=== PATIENT | male | born 1960 | race Caucasian/White ===

== ENCOUNTER 2024-09-19 06:24 | Day surgery (SDC) | payer MEDICARE, SELFPAY ==
[2024-09-19] VITALS (15 sets, daily range): BP systolic 108–148; BP diastolic 59–85; BMI 23.1
[2024-09-19] MEDS: COLACE 100 MG PO (17:50)
[2024-09-20 04:03] VITALS: BP 106/62
[2024-09-20 07:10] VITALS: BP 131/78
--- NOTE | 2024-09-20 07:55 | W.PN.UPDATE ---
Update Note
Progress Note Update
pt s/p TURP
marcos removed
TOV of void today and then discharge
[2024-09-20] MEDS: COLACE 100 MG PO ×3 (08:46→16:33)
[2024-09-20 09:10] LABS: Hematocrit 39.9 % (39.0-52.0); Hemoglobin 13.7 g/dL (13.0-18.0); Mean Corp Hgb Conc. 34.3 g/dL (33.0-37.0); Mean Corpuscular Volume 84.5 fL (80.0-94.0); Mean Platelet Volume 12.3 fL (7.4-10.4); Platelet Count 120 10^3/uL (130-400); Red Blood Cell Count 4.72 10^6/uL (4.70-6.10); Red Cell Dist. Width 12.6 % (11.5-14.5); White Blood Cell Count 9.1 10^3/uL (4.8-10.8)
[2024-09-20 09:48] LABS: Blood Urea Nitrogen 17 mg/dl (9-20); Calcium 8.9 mg/dl (8.4-10.2); Carbon Dioxide 29 mmol/L (22-30); Chloride 99 mmol/L (98-107); Estimated Creatinine Clearance 81 ml/min; Glucose 135 mg/dl (70-99); Potassium 3.8 mmol/L (3.5-5.1); Sodium 140 mmol/L (135-145); eGFR > 60.00
--- NOTE | 2024-09-20 10:16 | CM ---
Reviewed the chart notes and spoke with the patient at the bedside. Patient resides with spouse in a two story home. The patient reports no DME/VN/SNF in the past. The patient confirmed his pharmacy of choice is the [facility].
Patient's spouse to provide transportation home. CM continues to be available to patient/family and is monitoring medical plan for needs at discharge.
Plan: Discharge to home today with no anticipated needs. Amador has been removed.
[2024-09-20 11:02] VITALS: BP 147/86
--- NOTE | 2024-09-20 11:43 | W.PN.UPDATE ---
Update Note
Progress Note Update
pt unable to void
passing blood clots/pvr 500cc
22 kinyarwanda marcos replaced- hand irrigated- cbi restarted
will re-attempt TOV in am if urine clear
[2024-09-20] MEDS: FLOMAX 0.4 MG PO (12:13)
[2024-09-20 15:05] VITALS: BP 102/56
[2024-09-20 23:18] VITALS: BP 122/73
--- NOTE | 2024-09-21 00:23 | PTCARENOTE ---
CBI d/c per order at midnight. Urine in marcos bag very light yellow. patient resting comfortably in bed
[2024-09-21 07:35] VITALS: BP 109/76
--- NOTE | 2024-09-21 07:44 | W.PN.URO.CBU ---
Today's Communication / Plan
-
repeat TOV
Assessment / Plan
-
s/p TURP
recurrent retention pod 1
marcos removed today- repeat TOV
Diagnosis
-
Date of Service: September 21, 2024
-
Patient Diagnosis:
s/p TURP
Post Op Day:
2
Subjective
-
pt comfortable
labs yesterday stable
marcos was replaced and cbi restarted yesterday- off since midnight- urine clear
Objective
-
Vital Signs
Temp Pulse Resp BP Pulse Ox
98.0 F 58 16 122/73 99
09/20/24 23:18 09/20/24 23:18 09/20/24 23:18 09/20/24 23:18 09/20/24 23:18
Intake and Output
09/20/24 09/21/24 09/22/24
06:59 06:59 06:59
Intake Total 896 / 896 2500 / 2500
Output Total 7200 / 7200 8200 / 8200
Balance -6304 / -6304 -5700 / -5700
Intake:
Oral fluids 771 / 771 2500 / 2500
IV fluids (Total) 125 / 125
Ns 125 / 125
Output:
Urine, Marcos 750 / 750
True Urine Output from CBI 7200 / 7200 7450 / 7450
Laboratory Results
09/20/24 07:57
09/20/24 07:57
Review of Systems
-
Constitutional: Fatigue
Respiratory: No Symptoms
Cardiac: No Symptoms
Abdomen/GI: No Symptoms
Physical Exam
-
General - well developed, well nourished, no acute distress
Abdomen - soft, non-tender
Genitalia - normal- marcos in place
Skin - warm & dry with no rash
Neuro - AOx3, no motor deficits
Extremities - no clubbing, no cyanosis, no edema
[2024-09-21] MEDS: FLOMAX 0.4 MG PO (08:18)
[2024-09-21] MEDS: COLACE 100 MG PO ×2 (08:18→12:46)
[2024-09-21 14:52] VITALS: BP 126/67
== END 2024-09-21 15:21 | disposition home or self-care (01) ==
LOC: SDS 06:24
PROVIDERS: ATTENDING PHYSICIAN Specialist
DX: C61 Malignant neoplasm of prostate (principal); N40.1 Benign prostatic hyperplasia with lower urinary tract symptoms; N39.9 Disorder of urinary system, unspecified
CPT/HCPCS: 52601; 88305; 80048; 85027; 88344; 93005

== ENCOUNTER 2024-11-02 10:22 | Emergency (ER) | payer MEDICARE, SELFPAY ==
[2024-11-02 10:35] VITALS: BP 187/92
--- NOTE | 2024-11-02 12:19 | ED.GENMED ---
History of Present Illness
General
Chief Complaint: Male Genito-Urinary Symptoms
Source: patient
Exam Limitations: none
Time Seen by Provider: 11/02/24 10:38
History of Present Illness
History of Present Illness:
This is a 64-year-old male who presents with abdominal distention and inability to urinate. He had a TURP about 2 weeks ago and had been overall doing well but recently stopped his Flomax. The patient states that he did have a little bit of
urinary hesitancy last night but today symptoms got much worse. Denies hematuria. Denies fevers. Reports lower abdominal pain.
Past History
Past History
ED Past Medical History: Other (BPH)
ED Past Surgical History: Urological
Phy Exam
Physical Exam
Physical Exam:
CONSTITUTIONAL Patient alert and oriented to person, place and time. Well-appearing. Vital signs reviewed.
HEAD atraumatic, normocephalic.
EYES eyelids normal to inspection, Extraocular muscles intact, Conjunctiva normal, Sclera normal.
NECK normal range of motion, Trachea midline, no jugular venous distention.
RESPIRATORY CHEST No respiratory distress noted, Chest expansion equal
ABDOMEN moderate lower abdominal distention, moderate lower abdominal tenderness.
BACK normal inspection, no obvious deformities
UPPER EXTREMITY range of motion normal, Motor strength normal, no cyanosis, no edema.
LOWER EXTREMITY range of motion normal, Motor strength normal, no cyanosis, no edema.
NEURO Speech normal, No focal motor deficits, [place] coma scale 15, Memory normal, Cranial Nerves intact to screening exam.
SKIN skin warm, dry, and normal in color.
Course
Orders/Labs/Results
Orders:
Orders
11/02/24 10:46
Amador Placement- Treatment ONCE
Reason for insertion: Acute Retention
11/02/24 11:26
Sterile Water [Sterile Water For Injection] 10 ml .ROUTE .RUST-MED ONE
Vital Signs
Initial and Last Documented VS:
Initial Vital Signs
Pulse Resp BP Pulse Ox
57 20 187/92 99
11/02/24 10:35 11/02/24 10:35 11/02/24 10:35 11/02/24 10:35
Last Documented Vital Signs
Pulse Resp BP Pulse Ox
57 16 187/92 99
11/02/24 10:35 11/02/24 11:20 11/02/24 10:35 11/02/24 10:35
MDM/Problems Addressed
Differential Diagnosis Includes:
Hematuria, UTI, urinary retention
MDM/Problems Addressed:
Acute urinary retention.
*Pulse Oximetry
Patient hypoxic: no
*Critical Care Note
Total Time (30-74mins, 75-104mins- exclusive of procedures): Not Applicable
Data Reviewed
Review of Other/Old Records Reveals: Operative Reports (August 2024) and Progress Notes (History and physical reviewed from August 2024)
Source: patient
Further Testing Considered But Not Given:
Consider labs but previous labs reviewed revealing normal renal function
Patient Management
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 Lockett who agrees with antibiotic coverage)
Escalation/DeEscalation of care consider admission/obs:
Almost 1500 cc of urine into Amador catheter. Patient feels much better. Cover with antibiotics for prophylaxis and have patient follow-up with urology. Restart Flomax as he tolerated it well and seem to be doing well on Flomax
ED Attending Note
-
Portions of this chart may have been created with voice recognition software.� Occasional wrong word or��sound alike� substitutions may have occurred due to the inherent limitations of voice recognition software.
Discharge Plan
Departure
Patient Disposition: Home (Routine Discharge)
Date of Disposition: 11/02/24
Time of Disposition: 12:19
Patient with high blood pressure during this ER visit?: Yes
Discharge Problem:
Acute urinary retention
Instructions: How to Care for Your Amador Catheter, Male, Urinary Retention (DC), BLOOD PRESSURE
Prescriptions:
New
tamsulosin [Flomax] 0.4 mg capsule
0.4 mg PO DAILY Qty: 20 0RF
sulfamethoxazole-trimethoprim [Bactrim DS] 800-160 mg tablet
1 tab PO BID Qty: 14 0RF
No Action
multivitamin Tablet
1 tab PO DAILY
zinc acetate 50 mg (zinc) Capsule
50 mg PO DAILY
ascorbic acid (vitamin C) [Vitamin C] 500 mg Tablet
500 mg PO DAILY
cholecalciferol (vitamin D3) [Vitamin D3] 50 mcg (2,000 unit) Capsule
50 mcg PO DAILY
Uribel Tabs 81.6-0.12-10.8 mg tablet
1 tab PO QID Qty: 20 3RF
Referrals:
Todd Julien MD [Family Provider] -
Activity Restrictions/Additional Instructions:
Please see Dr. Tierney in follow-up in the next 3 to 5 days. Return immediately for fevers, vomiting, bloody urine, abdominal pain, worsening symptoms or any other concerns.
Interventions
Interventions:
*Risk Screen - Suicide Last Done: 11/02/24 10:35
*General Assessment Last Done: 11/02/24 11:20
*Neglect/Abuse Screening Last Done: 11/02/24 10:35
*ED COVID-19 Vaccine History Last Done: 11/02/24 11:20
ED-Male Genitourinary Assessment Last Done: 11/02/24 11:12
Discharge Date and Time
Print Language: PALAUAN
== END 2024-11-02 12:50 | disposition home or self-care (01) ==
LOC: EMR 10:22
PROVIDERS: EMERGENCY PHYSICIAN Emergency Medicine; FAMILY PHYSICIAN Internal Medicine
DX: R33.9 Retention of urine, unspecified (principal)
CPT/HCPCS: 99282; 51702

== ENCOUNTER 2024-12-06 17:00 | Emergency (ER) | payer MEDICARE, SELFPAY ==
[2024-12-06 17:09] VITALS: BP 153/83
[2024-12-06 17:43] LABS: % Basophils 0.4 % (0-2); % Eosinophils 0.7 % (0-6); % Immature Granulocytes 0.4 % (0-0.5); % Lymphocytes 21.2 % (20.5-51.1); % Monocytes 7.7 % (1.7-9.3); % Neutrophils 69.6 % (42.2-75.2); Absolute Lymphocytes 1.1 10^3/uL (1.2-3.4); Absolute Monocytes 0.4 10^3/uL (0.1-0.6); Absolute Neutrophils 3.7 10^3/uL (1.4-6.5); Hematocrit 40.3 % (39.0-52.0); Hemoglobin 13.7 g/dL (13.0-18.0); Mean Corpuscular Volume 85.2 fL (80.0-94.0); Mean Platelet Volume 12.3 fL (7.4-10.4); Nucleated Red Blood Cells % 0 % (-); Platelet Count 115 10^3/uL (130-400); Red Blood Cell Count 4.73 10^6/uL (4.70-6.10); Red Cell Dist. Width 13.2 % (11.5-14.5); White Blood Cell Count 5.3 10^3/uL (4.8-10.8)
[2024-12-06 17:53] LABS: ALT (SGPT) 37 U/L (0-50); AST (SGOT) 32 U/L (17-59); Albumin 4.6 g/dl (3.5-5.0); Alkaline Phosphatase 51 U/L (38-126); Blood Urea Nitrogen 18 mg/dl (9-20); Calcium 9.3 mg/dl (8.4-10.2); Carbon Dioxide 30 mmol/L (22-30); Chloride 100 mmol/L (98-107); Glucose 88 mg/dl (70-99); Potassium 4.2 mmol/L (3.5-5.1); Sodium 137 mmol/L (135-145); Total Bilirubin 0.8 mg/dl (0.2-1.3); Total Protein 6.8 g/dl (6.3-8.2); eGFR > 60.00
[2024-12-06 18:06] LABS: Troponin I < 0.012 ng/ml
[2024-12-06 20:25] VITALS: BP 126/77
--- NOTE | 2024-12-06 22:36 | ED.GENMED ---
History of Present Illness
General
Chief Complaint: Heart Rate Problem
Source: patient
Exam Limitations: none
Time Seen by Provider: 12/06/24 21:52
History of Present Illness
History of Present Illness:
This is a 64 year old male that comes in with c/o Insomnia. States that he had a TURP in September 19. States that he was given Flomax 29 doses and after he urinated he was discharged. Stats that he started to do Kegel exercises and he then became
unable to urinate. States that he was here for urinary retention. States that he was place back on the Flomax. Nov 02-. After this he started to have trouble sleeping. States that this PCP put him on Lorazepam for 10 days. States that he also
tried Ambien and then he couldn't eat. States that he went back and the [facility] gave him Lorazepam for a full month. 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 State that today he felt a little lightheaded and
his heart rate was only 51. States that he wants to stop the lorazepam and wants to know how to wean himself off. Patient admits to being a runner. Denies any fever, chills, chest pain, SOB, abd pain, nausea, vomiting, diarrhea, headache, urinary
burning.
Past History
Past History
ED Past Medical History: Other (BPH, ocular Migraines, Insomnia, mercury Poisoning in 2001)
ED Past Surgical History: Urological (TURP)
Social History
Tobacco: Non-smoker
Alcohol: Occasional
Personal:
Living: with family
Review of Systems
Review of Systems
All Other Systems: ROS reviewed and negative except as documented in HPI and ROS
Constitutional: Reports no symptoms; Denies fever or chills
EENT: Reports no symptoms
Respiratory: Reports no symptoms; Denies cough or trouble breathing
Cardiac: Reports no symptoms; Denies chest pain
ABD/GI: Reports no symptoms; Denies abdominal pain, nausea, vomiting or diarrhea
: Reports no symptoms; Denies dysuria, frequency or urgency
Musculoskeletal: Reports no symptoms
Skin: Reports no symptoms
Neurological: Reports other (Lightheaded); Denies dizzy or headache
Psychiatric: Reports no symptoms
Phy Exam
General Physical Exam
General Presentation: well appearing and no apparent distress
General age: appears stated age
General Skin: warm and dry
General Habitus: normal
General Mental: alert
General Hydration: appears well hydrated
ENT Exam
ENT Exam: TM's normal, pharynx normal and neck supple
Eye Exam
Eye Exam: EOMI
Cardiovascular Exam
Cardiovascular Exam: no edema, no murmur, normal peripheral pulses and bradycardia
Pulmonary Exam
Pulmonary Exam: lungs clear, no respiratory distress, no rales, chest non tender, no crackles, no rhonchi, no wheezing and no cough
Gastrointestinal Exam
Gastrointestinal Exam: normal bowel sounds, non tender, soft, no organomegaly, no pulsatile mass and non distended
Musculoskeletal Exam
Musculoskeletal Exam: full ROM and no edema
Skin Exam
Skin Exam: normal color, warm/dry, no rash and no petechia
Psychiatric Exam
Psychiatric Exam: normal mood/affect
Course
Orders/Labs/Results
Orders:
Orders
12/06/24 17:03
Electrocardiogram (*1) Urgent
Reason for Study: Bradycardia / Tachycardia
EKG- Treatment ONCE
12/06/24 17:33
Complete Blood Count/With Diff Urgent
Comprehensive Metabolic Panel Urgent
Troponin I Urgent
Abnormal Lab Results
12/06/24
17:33
Plt Count 115 L 10^3/uL
(130-400)
MPV 12.3 H fL
(7.4-10.4)
Absolute Lymphs (auto) 1.1 L 10^3/uL
(1.2-3.4)
12/06/24 17:33
12/06/24 17:33
Thrombocytopenia Otherwise normal labs. Troponin <0.012
Vital Signs
Initial and Last Documented VS:
Initial Vital Signs
Temp Pulse Resp BP Pulse Ox
98.5 F 54 16 153/83 100
12/06/24 17:09 12/06/24 17:09 12/06/24 17:09 12/06/24 17:09 12/06/24 17:09
Last Documented Vital Signs
Temp Pulse Resp BP Pulse Ox
98.5 F 56 13 126/77 100
12/06/24 17:09 12/06/24 20:30 12/06/24 20:30 12/06/24 20:25 12/06/24 20:30
MDM/Problems Addressed
Differential Diagnosis Includes:
Insomnia, Anxiety
MDM/Problems Addressed:
This is a 64 year old male that comes in with c/o Insomnia and wanting to wean off of Lorazepam.
Explained to patient that his blood work shows that his plt are a little low but otherwise his blood work is normal. Will have patient cut the Lorazepam to 0.5mg for 2 nights and the 0.25mg for 2 nights and then stop. Suggested that patient increase
his water intake to 8-8ozglasses daily and that he may want to just try Melatonin. Patient to follow up with the family doctor for further evaluation.
Chronic conditions affecting care:
Insomnia
Acute Exacerbation and/or Progression of Chronic Illness:
Insomnia
*Pulse Oximetry
Patient hypoxic: no
*EKG
Interpreted by ED Provider?: Yes
Heart Rate: 54
Rate: bradycardiac
Rhythm: sinus
[place]: normal axis
Interval: normal interval
QRS Pattern: other (Incomplete Right bundle branch block)
Ischemia: no ischemia
*[employer] Interpretation
Rate: bradycardiac
Heart Rate: 57
Rhythm: sinus
*Critical Care Note
Total Time (30-74mins, 75-104mins- exclusive of procedures): Not Applicable
ED Attending Note
-
Portions of this chart may have been created with voice recognition software.� Occasional wrong word or��sound alike� substitutions may have occurred due to the inherent limitations of voice recognition software.
Discharge Plan
Departure
Patient Disposition: Home (Routine Discharge)
Date of Disposition: 12/06/24
Time of Disposition: 22:47
Patient with high blood pressure during this ER visit?: No
Condition: Good
Covid-19: Not Applicable
Discharge Problem:
Insomnia
Instructions: Insomnia
Prescriptions:
No Action
multivitamin Tablet
1 tab PO DAILY
zinc acetate 50 mg (zinc) Capsule
50 mg PO DAILY
ascorbic acid (vitamin C) [Vitamin C] 500 mg Tablet
500 mg PO DAILY
cholecalciferol (vitamin D3) [Vitamin D3] 50 mcg (2,000 unit) Capsule
50 mcg PO DAILY
Uribel Tabs 81.6-0.12-10.8 mg tablet
1 tab PO QID Qty: 20 3RF
tamsulosin [Flomax] 0.4 mg capsule
0.4 mg PO DAILY Qty: 20 0RF
sulfamethoxazole-trimethoprim [Bactrim DS] 800-160 mg tablet
1 tab PO BID Qty: 14 0RF
Referrals:
Todd Julien MD [Family Provider] - Follow up in 2-3 days
Activity Restrictions/Additional Instructions:
As discussed,your platelet count is slightly low. Otherwise your blood work is normal. Please increase your water intake to 8-8oz glasses daily. Please use Lorazepam 0.5 mg for the next 2 nights and then decrease this to 0.25mg and then stop. Follow
up with the family doctor for further evaluation. You may also try Melatonin which is natural and this may help you sleep. IF YOU HAVE ANY OTHER CONCERNS PLEASE RETURN TO THE EMERGENCY ROOM.
Interventions
Interventions:
*Risk Screen - Suicide Last Done: 12/06/24 17:09
*General Assessment Last Done: 12/06/24 17:09
*Neglect/Abuse Screening Last Done: 12/06/24 17:09
ED- Fall Risk Assessment Last Done: 12/06/24 20:42
*ED COVID-19 Vaccine History Last Done: 12/06/24 17:09
ED- Cardiac Assessment Last Done: 12/06/24 20:42
ED- Pulmonary Assessment Last Done: 12/06/24 20:42
Discharge Date and Time
Print Language: PANAMANIAN
== END 2024-12-06 22:55 | disposition home or self-care (01) ==
LOC: EMR 17:00
PROVIDERS: Emergency Medicine; EMERGENCY PHYSICIAN Emergency Medicine; FAMILY PHYSICIAN Internal Medicine
DX: G47.00 Insomnia, unspecified (principal); R42 Dizziness and giddiness; I45.10 Unspecified right bundle-branch block; D69.6 Thrombocytopenia, unspecified; R00.1 Bradycardia, unspecified; N40.0 Benign prostatic hyperplasia without lower urinary tract symptoms; G43.909 Migraine, unspecified, not intractable, without status migrainosus
CPT/HCPCS: 99283; 80053; 84484; 85025; 93005

== ENCOUNTER → 2025-02-25 10:45 | Outpatient (REF) | payer MEDICARE, SELFPAY | LOC: MRI 3T 10:45 | PROVIDERS: ATTENDING PHYSICIAN Specialist; FAMILY PHYSICIAN Internal Medicine | DX: C61 Malignant neoplasm of prostate (principal) | CPT/HCPCS: 72197; A9575 ==